=== PATIENT | female | born 1965 | race Caucasian/White ===

== ENCOUNTER 2019-07-05 19:15 | Emergency (ER) | payer MEDICAID ==
[~2019-07-05] VITALS: Ht 162.6 cm; Wt 77.1 kg
[2019-07-05 19:22] VITALS: Ht 162.6 cm; Wt 77.1 kg
[2019-07-05 21:58] VITALS: BP 130/68
== END 2019-07-05 21:58 | disposition home or self-care (01) ==
LOC: ED 19:15
DX: M25.511 Pain in right shoulder (principal); R07.89 Other chest pain; F17.210 Nicotine dependence, cigarettes, uncomplicated; M79.7 Fibromyalgia; Z88.2 Allergy status to sulfonamides; Z88.5 Allergy status to narcotic agent
CPT/HCPCS: J1885